=== PATIENT | female | born 2000 | race American Indian/Alaskan Native ===

== ENCOUNTER → 2024-04-14 | Outpatient (CLI) | payer OTHER, SELFPAY ==
[2024-04-14 10:25] LABS: Basophils % (Auto) 0 % (0-2.5); Eosinophils # (Auto) 0.1 Thou/mm3 (0.0-0.5); Eosinophils % (Auto) 1 % (0-10); Hematocrit 38.6 % (36.0-46.0); Immature Granulocytes % (Auto) 0 % (0-0); Immature Granulocytes Auto 0.03 Thou/mm3 (0.00-0.00); Lymphocytes # (Auto) 2.3 Thou/mm3 (1.0-4.8); Lymphocytes % (Auto) 25 % (10-50); Mean Corpuscular HGB Conc 31.1 g/dl (31.0-37.0); Mean Corpuscular Hemoglobin 25.9 pg (25.0-35.0); Mean Corpuscular Volume 83 fL (80-100); Monocytes # (Auto) 0.7 Thou/mm3 (0.0-0.8); Monocytes % (Auto) 7 % (0-12); Neutrophils # (Auto) 5.9 Thou/mm3 (1.8-7.7); Neutrophils % (Auto) 66 % (37-80); Nucleated Red Blood Cell % 0 /100 WBC (0); Platelet Count 354 Thou/mm3 (140-440); RDW Standard Deviation 45.8 fL (36.4-46.3); Red Blood Count 4.64 Miln/mm3 (4.00-5.20); White Blood Count 8.9 Thou/mm3 (3.6-11.0)
[2024-04-14 10:42] LABS: Folate 11.36 ng/mL (>5.38); Vitamin B12 284 pg/mL (211-911)
[2024-04-14 10:45] LABS: Alanine Aminotransferase 18 U/L (10-49); Albumin, Serum 4.4 gm/dL (3.5-5.0); Albumin/Globulin Ratio 1.7 (1.2-2.2); Alkaline Phosphatase 91 U/L (46-116); Anion Gap 8 (7-16); Aspartate Amino Transferase 13 U/L (0-34); BUN/Creatinine Ratio 10 Ratio (12-20); Bilirubin,Total 0.3 mg/dL (0.3-1.2); Blood Urea Nitrogen 6 mg/dL (9-23); Calcium 9.9 mg/dL (8.3-10.6); Calcium (Corrected) 9.9 mg/dL (8.5-10.1); Carbon Dioxide 27.5 mMol/L (20.0-31.0); Chloride 105 mMol/L (98-107); Creatinine (Component) 0.6 mg/dL (0.6-1.3); Globulin 2.6 gm/dL (2.3-3.5); Glucose 99 mg/dL (74-106); Osmolality,Calculated 277 (275-295); Potassium 4.8 mMol/L (3.4-5.1); Sodium 140 mMol/L (136-145); eGFR > 60 See Note
[2024-04-14 10:52] LABS: Ferritin 5 ng/mL (7.3-270.7); Iron 24 mcg/dL (50-170); Percent Iron Saturation 6 % (20-55); Total Iron Binding Capacity 376 mcg/dL (250-425); Unsaturated Iron Binding 352 (225-295)
== END | disposition home or self-care (01) ==
LOC: SCTO 08:52
PROVIDERS: PCP Physician Assistant; Referring Provider Internal Medicine Hematology & Oncology; Visit Provider Internal Medicine Hematology & Oncology
DX: D68.00 Von Willebrand disease, unspecified (principal)
CPT/HCPCS: 36415; 80053; 82607; 82728; 82746; 83540; 83550; 85025

== ENCOUNTER 2024-04-15 09:58 | Outpatient (RCR) | payer OTHER, SELFPAY | END 2024-05-05 23:59 | disposition home or self-care (01) | LOC: SCTC 09:58 | PROVIDERS: PCP Nurse Practitioner Family; Referring Provider Nurse Practitioner Family; Visit Provider Nurse Practitioner Family | DX: E61.1 Iron deficiency (principal); N92.0 Excessive and frequent menstruation with regular cycle; E66.9 Obesity, unspecified; Z68.42 Body mass index [BMI] 45.0-49.9, adult | CPT/HCPCS: 99212; G0463 ==

== ENCOUNTER → 2024-06-04 | Outpatient (CLI) | payer OTHER, SELFPAY ==
[2024-06-04 12:16] LABS: Beta HCG,Quantitative < 1 mIU/mL (<5.0)
== END | disposition home or self-care (01) ==
LOC: SCTO 10:54
PROVIDERS: PCP Physician Assistant; Referring Provider Nurse Practitioner Family; Visit Provider Nurse Practitioner Family
DX: D68.00 Von Willebrand disease, unspecified (principal)
CPT/HCPCS: 36415; 84702

== ENCOUNTER → 2024-06-16 | Outpatient (CLI) | payer OTHER, SELFPAY ==
[2024-06-16 13:18] LABS: Basophils % (Auto) 1 % (0-2.5); Eosinophils # (Auto) 0.1 Thou/mm3 (0.0-0.5); Eosinophils % (Auto) 1 % (0-10); Hematocrit 39.3 % (36.0-46.0); Hemoglobin 12.2 g/dL (12.0-16.0); Immature Granulocytes % (Auto) 0 % (0-0); Immature Granulocytes Auto 0.02 Thou/mm3 (0.00-0.00); Lymphocytes # (Auto) 2.5 Thou/mm3 (1.0-4.8); Lymphocytes % (Auto) 32 % (10-50); Mean Corpuscular Hemoglobin 25.8 pg (25.0-35.0); Mean Corpuscular Volume 83 fL (80-100); Monocytes # (Auto) 0.5 Thou/mm3 (0.0-0.8); Monocytes % (Auto) 6 % (0-12); Neutrophils # (Auto) 4.6 Thou/mm3 (1.8-7.7); Neutrophils % (Auto) 60 % (37-80); Nucleated Red Blood Cell % 0 /100 WBC (0); Platelet Count 346 Thou/mm3 (140-440); RDW Standard Deviation 46.3 fL (36.4-46.3); Red Blood Count 4.72 Miln/mm3 (4.00-5.20); White Blood Count 7.7 Thou/mm3 (3.6-11.0)
[2024-06-16 13:32] LABS: Alanine Aminotransferase 18 U/L (10-49); Albumin, Serum 4.4 gm/dL (3.5-5.0); Albumin/Globulin Ratio 1.7 (1.2-2.2); Alkaline Phosphatase 94 U/L (46-116); Anion Gap 7 (7-16); Aspartate Amino Transferase 15 U/L (0-34); BUN/Creatinine Ratio 8 Ratio (12-20); Bilirubin,Total 0.5 mg/dL (0.3-1.2); Blood Urea Nitrogen 5 mg/dL (9-23); Calcium 8.9 mg/dL (8.3-10.6); Calcium (Corrected) 8.9 mg/dL (8.5-10.1); Carbon Dioxide 27.8 mMol/L (20.0-31.0); Chloride 105 mMol/L (98-107); Creatinine (Component) 0.6 mg/dL (0.6-1.3); Globulin 2.6 gm/dL (2.3-3.5); Glucose 99 mg/dL (74-106); Osmolality,Calculated 276 (275-295); Potassium 4.5 mMol/L (3.4-5.1); Sodium 140 mMol/L (136-145); eGFR > 60 See Note
== END | disposition home or self-care (01) ==
LOC: SCTO 12:09
PROVIDERS: PCP Nurse Practitioner Family; Referring Provider Nurse Practitioner Family; Visit Provider Nurse Practitioner Family
DX: D68.00 Von Willebrand disease, unspecified (principal)
CPT/HCPCS: 36415; 80053; 85025

== ENCOUNTER 2024-07-03 13:33 | Outpatient (RCR) | payer OTHER, SELFPAY | END 2024-07-05 23:59 | disposition home or self-care (01) | LOC: SCTC 13:33 | PROVIDERS: PCP Nurse Practitioner Family; Referring Provider Nurse Practitioner Family; Visit Provider Nurse Practitioner Family | DX: D50.9 Iron deficiency anemia, unspecified (principal); D68.00 Von Willebrand disease, unspecified; N92.0 Excessive and frequent menstruation with regular cycle; E66.9 Obesity, unspecified; Z68.41 Body mass index [BMI] 40.0-44.9, adult | CPT/HCPCS: 96365; 96375; 99212; A4216; J1756; J2919; J3490; J7040; J7050; G0463 ==

== ENCOUNTER → 2024-07-15 | Outpatient (CLI) | payer OTHER, SELFPAY ==
[2024-07-15 13:19] LABS: Basophils % (Auto) 0 % (0-2.5); Eosinophils # (Auto) 0.1 Thou/mm3 (0.0-0.5); Eosinophils % (Auto) 1 % (0-10); Hemoglobin 13.1 g/dL (12.0-16.0); Immature Granulocytes % (Auto) 0 % (0-0); Immature Granulocytes Auto 0.02 Thou/mm3 (0.00-0.00); Lymphocytes # (Auto) 2.2 Thou/mm3 (1.0-4.8); Lymphocytes % (Auto) 27 % (10-50); Mean Corpuscular HGB Conc 33.6 g/dl (31.0-37.0); Mean Corpuscular Hemoglobin 27.6 pg (25.0-35.0); Mean Corpuscular Volume 82 fL (80-100); Monocytes # (Auto) 0.5 Thou/mm3 (0.0-0.8); Monocytes % (Auto) 6 % (0-12); Neutrophils # (Auto) 5.2 Thou/mm3 (1.8-7.7); Neutrophils % (Auto) 65 % (37-80); Nucleated Red Blood Cell % 0 /100 WBC (0); Platelet Count 301 Thou/mm3 (140-440); RDW Standard Deviation 52.8 fL (36.4-46.3); Red Blood Count 4.75 Miln/mm3 (4.00-5.20); White Blood Count 8.1 Thou/mm3 (3.6-11.0)
[2024-07-15 13:39] LABS: Alanine Aminotransferase 22 U/L (10-49); Albumin, Serum 4.5 gm/dL (3.5-5.0); Albumin/Globulin Ratio 1.8 (1.2-2.2); Alkaline Phosphatase 93 U/L (46-116); Anion Gap 9 (7-16); BUN/Creatinine Ratio 13 Ratio (12-20); Bilirubin,Total 0.5 mg/dL (0.3-1.2); Blood Urea Nitrogen 9 mg/dL (9-23); Calcium 9.4 mg/dL (8.3-10.6); Calcium (Corrected) 9.4 mg/dL (8.5-10.1); Carbon Dioxide 29.2 mMol/L (20.0-31.0); Chloride 105 mMol/L (98-107); Creatinine (Component) 0.7 mg/dL (0.6-1.3); Globulin 2.5 gm/dL (2.3-3.5); Glucose 98 mg/dL (74-106); Osmolality,Calculated 283 (275-295); Potassium 4.6 mMol/L (3.4-5.1); Sodium 143 mMol/L (136-145); eGFR > 60 See Note
== END | disposition home or self-care (01) ==
PROVIDERS: PCP Nurse Practitioner Family; Referring Provider Nurse Practitioner Family; Visit Provider Nurse Practitioner Family
DX: D68.00 Von Willebrand disease, unspecified (principal)
CPT/HCPCS: 36415; 80053; 85025

== ENCOUNTER 2024-07-16 12:53 | Outpatient (RCR) | payer OTHER, SELFPAY ==
--- NOTE | 2024-07-22 01:03 | CTCFLWUP_ITS ---
Patient: DENNISE HASSAN : 2000 Page 3 of 5 FOLLOW UP NOTE DATE OF SERVICE: 07/16/2024 NAME: DENNISE HASSAN ACCOUNT: [id number] : 2000 AGE: 24 INTERVAL HISTORY: Subjective: Chief Complaint Heavy menstrual bleeding, low iron levels History of Present Illness Risa Hassan is a female patient with a history of von Willebrand disease, diagnosed at age 14, presenting for follow-up of iron deficiency anemia. The patient reports regular menstrual periods lasting approximately 7 days, with some variation in duration. The patient's iron deficiency has been affecting her overall health, including her heart, vision, memory, and general well-being. Prior to treatment, she experienced weakness and fatigue when her hemoglobin was 12. Her ferritin level was notably low at 6 during her last visit. Currently, her hemoglobin has improved to normal levels, primarily due to treatment for iron deficiency. Regarding her von Willebrand disease management, the patient previously used an inhaler for bleeding control but discontinued its use 5-6 years ago. She now relies solely on Amicar for treatment. She has received 5 doses of Amicar, with plans to continue and increase the dosage. The patient is not currently in a relationship and does not see a route sales representative regularly. She has O insurance and does not require referrals for specialist visits. Medications and Supplements - Amicar - Received 5 doses, adding more. - Inhaler - Used before for bleeding. - Stopped 5-6 years ago. Review of Systems General: Positive for weakness and fatigue (prior to treatment). Genitourinary: Positive for prolonged menstrual bleeding (usually 7 days, sometimes more or less). Objective: Laboratory, Imaging, and Diagnostic Test Results - Previous results: - Ferritin: 6 (low) - Hemoglobin: 12 - Current results: - Hemoglobin: Normal (specific value not provided) - Hemoglobin A: Improved (specific value not provided) ONCOLOGY HISTORY: DIAGNOSIS: Questionable history of mild type I von Willebrand disease History of menorrhagia. Patient is on intermittent Amicar with significant improvement in menstrual bleeding Obesity. Weight 259 pounds, BMI 43.1 DATE OF DIAGNOSIS: STAGE/TNM: TREATMENT HISTORY: Care?Plan Start?Date Cycle Day Intent VENOfer?200mg?IV?wkly?for?5?weeks 06/05/2024 1 70 Palliative HISTORY OF PRESENT ILLNESS: PREVIOUS NOTE: Dennise Hassan is a 24-year-old ENG speaking female with history of menorrhagia was initially diagnosed with questionable history of mild type I von Willebrand disease at [facility]. Since then she has taken Amicar at least 20 times with significant improvement in her menstrual bleeding. She usually takes 6 g p.o. every 6 hours for about 7 days starting on the day 1 of heavy menstrual bleeding. Ms. Hassan does not have any family history of von Willebrand disease. She had tonsillectomy at age 10 without any significant bleeding 05/05/2015: Von Willebrand ristocetin cofactor activity 51, von Willebrand antigen 46, normal distribution of multimers. 01/20/2022: Von Willebrand antigen 58%, VWF ristocetin cofactor 51%, factor VIII activity 71%, VWF antigen, multimeric within normal limits 04/14/2022: VWF antigen 58%, VWF ristocetin cofactor 58%, factor VIII activity 47%, von Willebrand antigen multi emetics within normal limits OTHER MEDICAL HISTORY/CONDITIONS: Von Willebrand disease - dx age 14-13 Anemia Obesity Tonsillectomy?-?age?10 FAMILY HISTORY: Cancer History:?Maternal grandmother- uterine; Mat great grandmother-breast SOCIAL HISTORY: Occupational?History:?Student Education?Level:?Attended College, did not graduate Tobacco?Use:?Denies ETOH?Use:?Denies Drug?Note:?Denies Social?History?Note:?Lives?with?parents [employer] SUPERINTENDENT HISTORY: Menarche?-?Age:?13 Date?LMP:?12/20/2021 :?0 MEDICATIONS: 1. Amicar - 1,000 mg 3 tab 3 tabs po q 6 hours for 7 days prn Medications Last Reconciled by Anuradha Carballo MA on 07/16/2024 ALLERGIES: NSAIDS (Non-Steroidal Anti-Inflammatory Drug) REVIEW OF SYSTEMS: A complete 14-point review of systems was performed and is negative except as noted in interval history. PHYSICAL EXAMINATION: VITAL SIGNS: Temperature?98, B/P?147/87, Oxygen?Saturation?98% Weight?273?lbs (Change?since?07/11/24:?-3.2?lbs) PAIN: 0 - No pain GENERAL APPEARANCE: Appears well, in no apparent distress, appropriately interactive. HEENT: Normocephalic, no temporal wasting, normal conjunctiva, no scleral icterus, normal hearing, lips without lesions, neck normal range of motion. CARDIOVASCULAR: Not assessed. PULMONARY: Normal respiratory effort, no respiratory distress or use of accessory muscles, speaking in full sentences, no tachypnea. EXTREMITIES: No pedal edema or cyanosis. SKIN: Normal skin appearance. NEUROLOGIC: Alert and oriented x4. PSHYCHIATRIC: Appropriate affect, mood normal, behavior normal, intact thought and speech. LABORATORY DATA: I have personally reviewed and interpreted each of the patient?s relevant lab tests, abnormal findings are below: Date 06/16/24 07/15/24 ??WHITE?BLOOD?COUNT?(Thou/mm3) 7.7 8.1 ??RED?BLOOD?COUNT?(Miln/mm3) 4.72 4.75 ??HEMOGLOBIN?(gm/dl) 12.2 13.1 ??HEMATOCRIT?(%) 39.3 39.0 ??PLATELET?COUNT?(Thou/mm3) 346 301 ??NEUTROPHILS?%,?AUTO?(%) 60 65 ??LYMPH?%,?AUTO?(%) 32 27 ??NEUTROPHILS,?AUTO?(Thou/mm3) 4.6 5.2 ??GLUCOSE,RANDOM?(mg/dL) 99 98 ??BLOOD?UREA?NITROGEN?(mg/dL) 5?L 9 ??CREATININE?(mg/dL) 0.60 0.70 ??SODIUM?(mmol/L) 140 143 ??POTASSIUM?(mmol/L) 4.5 4.6 ??CHLORIDE?(mmol/L) 105 105 ??CrCl?(CandG)?(ml/min) 196.11 168.39 ??AST/SGOT?(Unit/L) 15 ? ??ALT/SGPT?(Unit/L) 18 22 ??ALKALINE?PHOSPHATASE?(Unit/L) 94 93 ??BILIRUBIN,?TOTAL?(mg/dL) 0.5 0.5 ??PROTEIN?TOTAL?(gm/dl) 7.0 7.0 ??ALBUMIN,?SERUM?(gm/dl) 4.4 4.5 ??GLOBULIN?(gm/dl) 2.6 2.5 ??ALBUMIN/GLOBULIN?RATIO 1.7 1.8 ??CALCIUM,?SERUM?(mg/dL) 8.9 9.4 ??CALCIUM?SERUM?(CORRECTED)?(mg/dL) 8.9 9.4 ASSESSMENT/PLAN: Assessment and Plan: Risa Hassan, female patient with von Willebrand disease diagnosed at age 14, presenting with iron deficiency anemia and prolonged menstrual bleeding. Von Willebrand Disease Assessment: Patient has a known history of von Willebrand disease diagnosed at age 14 at [facility]. She reports prolonged menstrual bleeding, typically lasting 7 days but sometimes longer. Previously used an inhaler for bleeding management but discontinued 5-6 years ago. Currently using Amicar for bleeding control. The condition is affecting her iron levels, with a recent ferritin level of 6, indicating severe iron deficiency. Plan: - Continue Amicar for bleeding control - Refer to Dr. Diaz at [facility] for hematology evaluation - Possible need for Factor treatment to be assessed - Monitor ferritin levels with blood work every 3 months - Refer to Dr. Fuentes, OB-METERS SUPERINTENDENT at [facility] for gynecological evaluation - Consider IUD for control and menstrual management Iron Deficiency Anemia Assessment: Patient presents with severe iron deficiency, evidenced by a very low ferritin level of 6. This is likely secondary to her von Willebrand disease causing prolonged menstrual bleeding. The iron deficiency is impacting her overall health, including heart function, vision, memory, and general well- being. Previously, the patient reported feeling weak and tired when her hemoglobin was 12. Current hemoglobin levels have normalized, and hemoglobin A has improved, primarily due to addressing the iron deficiency. Plan: - Continue current iron supplementation (dosage not specified) - Monitor ferritin levels with blood work every 3 months - Educate patient on the importance of iron supplementation and its effects on overall health - Follow up with hematology for ongoing management of iron deficiency 2. Menorrhagia Assessment: Patient has a history of menorrhagia, which may be contributing to iron deficiency. Currently using Amicar 3 grams every 6 hours daily for 7 days starting on the first day of heavy menstrual bleeding, but has not needed it recently. Patient desires referral to gynecology for management of heavy periods. Plan: - Refer to Dr. Baltazar for evaluation and management of menorrhagia 3. Questionable mild type 1 von Willebrand disease Assessment: Patient has a questionable history of mild type 1 von Willebrand disease. However, von Willebrand panel tests performed on 01/10/2022 and 04/14/2022 did not show definitive evidence of von Willebrand disease. Plan: - Continue monitoring for symptoms related to potential von Willebrand disease - No specific interventions planned at this time given lack of definitive evidence 4. Obesity Assessment: Patient has obesity with a BMI of 43.1. Plan: - Continue f/u with PCP for management 5. Pending wisdom teeth extraction Assessment: Patient plans to have wisdom teeth removed at [facility]. This procedure has not yet been scheduled. Plan: - Continue [facility] recommendations, procedure at [facility] to treat von Willebrand disease if she develops significant bleeding. RETURN TO CLINIC: BILLING AND COMPLIANCE: I reviewed external records from providers outside my specialty as summarized above. I spent a total of 50 minutes on this patient?s care on the day of their visit excluding time spent related to any billed procedures. This time includes time spent with the patient as well as time spent documenting in the medical record, reviewing patients records and tests, obtaining history, placing orders, communicating with other healthcare professionals, counseling the patient, family or caregiver, and/or care coordination for the diagnoses above. Electronically Signed by: Jacob Angela MD T: 1:00 AM CC: PCP: Referring: Dona Pryor ([facility]) This document was completed utilizing speech recognition software. Grammatical errors, random word insertions, pronoun errors, and incomplete sentences are an occasional consequence of this system due to software limitations, ambient noise, and hardware issues. Any formal questions or concerns about the content, text or information contained within the body of this dictation should be directly addressed to the provider for clarification.
== END 2024-08-04 23:59 | disposition home or self-care (01) ==
LOC: SCTC 12:53
PROVIDERS: PCP Nurse Practitioner Family; Referring Provider Nurse Practitioner Family; Visit Provider Internal Medicine Hematology & Oncology
DX: D50.9 Iron deficiency anemia, unspecified (principal); D68.00 Von Willebrand disease, unspecified; N92.0 Excessive and frequent menstruation with regular cycle; E66.9 Obesity, unspecified; Z68.41 Body mass index [BMI] 40.0-44.9, adult
CPT/HCPCS: 96365; 96375; 99212; J1756; J2919; J3490; J7040; J7050; G0463

== ENCOUNTER 2024-09-04 13:25 | Outpatient (RCR) | payer OTHER, SELFPAY | END 2024-09-04 23:59 | disposition home or self-care (01) | LOC: SCTC 13:25 | PROVIDERS: PCP Nurse Practitioner Family; Referring Provider Nurse Practitioner Family; Visit Provider Nurse Practitioner Family | DX: D50.9 Iron deficiency anemia, unspecified (principal); D68.00 Von Willebrand disease, unspecified; N92.0 Excessive and frequent menstruation with regular cycle; E66.9 Obesity, unspecified; Z68.42 Body mass index [BMI] 45.0-49.9, adult | CPT/HCPCS: 96361; 96365; 96367; 96375; A4216; J1756; J2919; J3490; J7040; J7050 ==

== ENCOUNTER → 2024-10-28 | Outpatient (CLI) | payer OTHER, SELFPAY ==
[2024-10-28 14:01] LABS: Basophils # (Auto) 0.0 Thou/mm3 (0.0-0.2); Basophils % (Auto) 0 % (0-2.5); Eosinophils # (Auto) 0.1 Thou/mm3 (0.0-0.5); Eosinophils % (Auto) 1 % (0-10); Hematocrit 44.0 % (36.0-46.0); Hemoglobin 14.6 g/dL (12.0-16.0); Immature Granulocytes Auto 0.03 Thou/mm3 (0.00-0.00); Immature Reticulocyte Fraction 7.6 % (3.0-15.9); Lymphocytes # (Auto) 1.9 Thou/mm3 (1.0-4.8); Lymphocytes % (Auto) 20 % (10-50); Mean Corpuscular HGB Conc 33.2 g/dl (31.0-37.0); Mean Corpuscular Hemoglobin 31.1 pg (25.0-35.0); Mean Corpuscular Volume 94 fL (80-100); Monocytes # (Auto) 0.4 Thou/mm3 (0.0-0.8); Monocytes % (Auto) 5 % (0-12); Neutrophils # (Auto) 7.0 Thou/mm3 (1.8-7.7); Neutrophils % (Auto) 74 % (37-80); Nucleated Red Blood Cell # 0.00 Thou/mm3 (0.00-0.00); Nucleated Red Blood Cell % 0 /100 WBC (0); Platelet Count 336 Thou/mm3 (140-440); RDW Standard Deviation 43.3 fL (36.4-46.3); Red Blood Count 4.70 Miln/mm3 (4.00-5.20); Reticulocyte % (Auto) 1.6 % (0.5-1.5); Reticulocyte Absolute Auto 76.1 Biln/L (25.0-75.0); Reticulocyte Hgb Content 33.3 pg (28.0-35.0); White Blood Count 9.4 Thou/mm3 (3.6-11.0)
[2024-10-28 14:12] LABS: Ferritin 170 ng/mL (7.3-270.7); Iron 86 mcg/dL (50-170); Percent Iron Saturation 30 % (20-55); Total Iron Binding Capacity 279 mcg/dL (250-425); Unsaturated Iron Binding 193 (225-295)
[2024-10-28 14:16] LABS: Folate 9.49 ng/mL (>5.38); Vitamin B12 316 pg/mL (211-911)
[2024-10-28 14:17] LABS: Alanine Aminotransferase 18 U/L (10-49); Albumin, Serum 4.8 gm/dL (3.5-5.0); Albumin/Globulin Ratio 1.9 (1.2-2.2); Alkaline Phosphatase 92 U/L (46-116); Anion Gap 11 (7-16); Aspartate Amino Transferase 11 U/L (0-34); BUN/Creatinine Ratio 7 Ratio (12-20); Bilirubin,Total 0.4 mg/dL (0.3-1.2); Blood Urea Nitrogen 5 mg/dL (9-23); Calcium 10.1 mg/dL (8.3-10.6); Calcium (Corrected) 10.1 mg/dL (8.5-10.1); Carbon Dioxide 27.5 mMol/L (20.0-31.0); Chloride 105 mMol/L (98-107); Creatinine (Component) 0.7 mg/dL (0.6-1.3); Globulin 2.5 gm/dL (2.3-3.5); Glucose 98 mg/dL (74-106); Osmolality,Calculated 282 (275-295); Potassium 4.7 mMol/L (3.4-5.1); Sodium 143 mMol/L (136-145); Total Protein 7.3 gm/dL (5.7-8.2); eGFR > 60 See Note
== END | disposition home or self-care (01) ==
LOC: SCTO 12:32
PROVIDERS: PCP Nurse Practitioner Family; Referring Provider Nurse Practitioner Family; Visit Provider Nurse Practitioner Family
DX: E61.1 Iron deficiency (principal)
CPT/HCPCS: 36415; 80053; 82607; 82728; 82746; 83540; 83550; 85025; 85046

== ENCOUNTER 2024-10-29 13:46 | Outpatient (RCR) | payer OTHER, SELFPAY | END 2024-11-04 23:59 | disposition home or self-care (01) | LOC: SCTC 13:46 | PROVIDERS: PCP Nurse Practitioner Family; Referring Provider Nurse Practitioner Family; Visit Provider Nurse Practitioner Family | DX: D68.00 Von Willebrand disease, unspecified (principal); D50.9 Iron deficiency anemia, unspecified; E66.9 Obesity, unspecified; Z68.41 Body mass index [BMI] 40.0-44.9, adult | CPT/HCPCS: 99212; G0463 ==

== ENCOUNTER → 2024-12-02 | Outpatient (CLI) | payer BC, SELFPAY ==
[2024-12-02 12:30] LABS: Basophils # (Auto) 0.0 Thou/mm3 (0.0-0.2); Basophils % (Auto) 0 % (0-2.5); Eosinophils # (Auto) 0.1 Thou/mm3 (0.0-0.5); Eosinophils % (Auto) 1 % (0-10); Hematocrit 43.9 % (36.0-46.0); Hemoglobin 14.5 g/dL (12.0-16.0); Immature Granulocytes Auto 0.02 Thou/mm3 (0.00-0.00); Lymphocytes # (Auto) 1.5 Thou/mm3 (1.0-4.8); Lymphocytes % (Auto) 18 % (10-50); Mean Corpuscular HGB Conc 33.0 g/dl (31.0-37.0); Mean Corpuscular Hemoglobin 30.9 pg (25.0-35.0); Mean Corpuscular Volume 94 fL (80-100); Monocytes # (Auto) 0.5 Thou/mm3 (0.0-0.8); Monocytes % (Auto) 5 % (0-12); Neutrophils # (Auto) 6.3 Thou/mm3 (1.8-7.7); Neutrophils % (Auto) 76 % (37-80); Nucleated Red Blood Cell # 0.00 Thou/mm3 (0.00-0.00); Nucleated Red Blood Cell % 0 /100 WBC (0); Platelet Count 319 Thou/mm3 (140-440); RDW Standard Deviation 41.7 fL (36.4-46.3); Red Blood Count 4.69 Miln/mm3 (4.00-5.20); White Blood Count 8.3 Thou/mm3 (3.6-11.0)
[2024-12-02 12:35] LABS: INR 0.9 (0.9-1.3); Prothrombin Time 10.1 Seconds (9.0-12.2)
[2024-12-02 12:50] LABS: Folate 10.24 ng/mL (>5.38); Vitamin B12 368 pg/mL (211-911)
[2024-12-02 12:54] LABS: Alanine Aminotransferase 21 U/L (10-49); Albumin, Serum 5.1 gm/dL (3.5-5.0); Albumin/Globulin Ratio 2.2 (1.2-2.2); Alkaline Phosphatase 101 U/L (46-116); Anion Gap 11 (7-16); Aspartate Amino Transferase 16 U/L (0-34); BUN/Creatinine Ratio 10 Ratio (12-20); Bilirubin,Total 0.5 mg/dL (0.3-1.2); Blood Urea Nitrogen 6 mg/dL (9-23); Calcium 9.6 mg/dL (8.3-10.6); Calcium (Corrected) 9.6 mg/dL (8.5-10.1); Carbon Dioxide 27.0 mMol/L (20.0-31.0); Chloride 105 mMol/L (98-107); Creatinine (Component) 0.6 mg/dL (0.6-1.3); Globulin 2.3 gm/dL (2.3-3.5); Glucose 100 mg/dL (74-106); Osmolality,Calculated 282 (275-295); Potassium 4.1 mMol/L (3.4-5.1); Sodium 143 mMol/L (136-145); Total Protein 7.4 gm/dL (5.7-8.2); eGFR > 60 See Note
[2024-12-02 12:55] LABS: Ferritin 167 ng/mL (7.3-270.7); Iron 52 mcg/dL (50-170); Percent Iron Saturation 18 % (20-55); Total Iron Binding Capacity 286 mcg/dL (250-425); Unsaturated Iron Binding 234 (225-295)
== END | disposition home or self-care (01) ==
PROVIDERS: PCP Nurse Practitioner Family; Referring Provider Nurse Practitioner Family; Visit Provider Nurse Practitioner Family
DX: D68.00 Von Willebrand disease, unspecified (principal); E61.1 Iron deficiency
CPT/HCPCS: 36415; 80053; 82607; 82728; 82746; 83540; 83550; 85025; 85610

== ENCOUNTER 2024-12-03 12:58 | Outpatient (RCR) | payer BC, SELFPAY | END 2024-12-05 23:59 | disposition home or self-care (01) | LOC: SCTC 12:58 | PROVIDERS: PCP Physician Assistant; Referring Provider Physician Assistant; Visit Provider Nurse Practitioner Family | DX: D68.01 Von Willebrand disease, type 1 (principal); D50.9 Iron deficiency anemia, unspecified; N92.6 Irregular menstruation, unspecified | CPT/HCPCS: 99212; G0463 ==

== ENCOUNTER 2024-12-19 18:25 | Emergency (ER) | payer BC, SELFPAY ==
[2024-12-19 18:32] VITALS: BP 152/99; PULSE 118; RESP 20; TEMP 36.9; O2SAT 96; BMI 44.9
[2024-12-19 18:36] VITALS: PULSE 118; O2SAT 96
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
[2024-12-19] MEDS: ACETAMINOPHEN 500 MG TABLET 1000 MG PO (19:33)
== END 2024-12-19 21:25 | disposition home or self-care (01) ==
PROVIDERS: Emergency Provider Family Medicine; PCP Nurse Practitioner Family
DX: S00.83XA Contusion of other part of head, initial encounter (principal); Y09 Assault by unspecified means
CPT/HCPCS: 70486; 99282; A9270